=== PATIENT | male | born 1955 | race Caucasian/White ===

== ENCOUNTER 2021-10-06 23:38 | Inpatient (IN) | payer OTHER ==
[~2021-10-06] VITALS: Ht 182.9 cm; Wt 86.4 kg
[2021-10-06] MEDS ORDERED: fentaNYL PF VIAL 100 MCG/2 ML VIAL ONE (23:43)
--- NOTE | 2021-10-07 01:08 | RAD ---
XR SHOULDER 1 VIEW DATE: 10/06/2021 11:50 PM INDICATION: concern for b/l dislocation COMPARISON: None. FINDINGS/ IMPRESSION: Inferior displacement of both humeral heads relative to the glenoid with the arms in fixed abduction, concerning for bilateral inferior shoulder dislocations. No definite fracture line is visualized Electronically signed by: Nikhil Hart MD (10/07/2021 1:06 AM) [facility]
[2021-10-07 01:13] LABS: BASO % 0 % (0-3); EOS # 0.1 x10^3/uL (0.0-0.7); EOS % 1 % (0-3); HEMATOCRIT 43.1 % (39.0-53.0); HEMOGLOBIN 14.3 g/dL (13.0-17.5); LYMPH # 1.5 x10^3/uL (1.0-4.8); LYMPH % 10 % (24-48); MEAN CORPUSCULAR HEMOGLOBIN 31 pg (25-35); MEAN CORPUSCULAR HGB CONC 33 g/dL (31-37); MEAN CORPUSCULAR VOLUME 94 fL (79-100); MONO # 0.9 x10^3/uL (0.0-1.1); MONO % 6 % (0-9); NEUT # 13.3 x10^3/uL (1.8-7.7); NEUT % 84 % (31-73); PLATELET COUNT 251 x10^3/uL (140-400); RED BLOOD COUNT 4.61 x10^6/uL (4.30-5.70); RED CELL DISTRIBUTION WIDTH 13.4 % (11.5-14.5)
[2021-10-07 01:24] LABS: GFR 75.2; POTASSIUM 3.9 mmol/L (3.5-5.1)
[2021-10-07 01:29] LABS: ALBUMIN 3.4 g/dL (3.4-5.0); ALBUMIN/GLOBULIN RATIO 0.7 (1.0-1.7); TOTAL BILIRUBIN 0.2 mg/dL (0.2-1.0)
--- NOTE | 2021-10-07 01:37 | RAD ---
CT HEAD AND C-SPINE WO Date: 10/07/2021 1:22 AM Clinical Indication: head trauma, pain Comparison: None. Technique: 5 mm axial tomographic images were obtained of the head without contrast. These were view ed on brain and bone windows. Noncontrast CT of the cervical spine was performed. Sagittal and park l reformats were performed and evaluated. One or more of the following dose reduction techniques were utilized: Automated exposure control (AEC), Adjustment of mA and/or kV according to patient size, Us e of iterative reconstruction technique such as ASiR, CT scan done according to ALARA and image gentl y/image wisely HEAD FINDINGS: Mild generalized cerebral and cerebellar volume loss. Mild nonspecific periventricular hypoattenuatio n, most commonly seen with chronic small vessel ischemic disease. No intra- or extra-axial mass or fluid collection. No acute hemorrhage. The ventricles are normal in size, shape, and morphology. The lowe-white matter junction is normal. The basilar cisterns are paten t. Mild maxillary sinus mucosal thickening. The visualized portions of the orbits and globes are normal . The mastoid air cells are clear. No aggressive osseous lesion or fracture. CERVICAL SPINE FINDINGS: Straightening of the cervical lordosis. No acute fracture. No aggressive lytic or blastic osseous les ions. Moderate to severe multilevel degenerative disc space height loss. Multilevel moderate spinal canal s tenosis secondary to disc protrusions and marginal osteophytes. Multilevel severe neuroforaminal narr owing secondary to uncovertebral arthrosis. Multilevel mild and moderate facet arthrosis. The thyroid gland is normal. No cervical lymphadenopathy. Bilateral carotid atherosclerosis. The visu alized aerodigestive tract is normal. The visualized portions of the lungs are clear. IMPRESSION: 1. No acute intracranial process. 2. No acute cervical spine fracture. Electronically signed by: Nikhil Hart MD (10/07/2021 1:35 AM) [facility]
--- NOTE | 2021-10-07 01:40 | PHYS DOC ---
General Adult EDM: Chief Complaint: UPPER EXTREMITY PAIN HPI: HPI: Patient is a 65 year old male with history of right shoulder surgery who presents with EMS after trauma sustained at work with [employer]. 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 He had immediate pain in his shoulders there is concern for bilateral shoulder dislocations by EMS. Patient was placed in a field c-collar. Patient received 200 mcg of IV fentanyl prior to arrival. Denies any severe headache or neck pain. States only pain in his shoulders. No blood thinners. Review of Systems: Review of Systems: Constitutional: Denies fever or chills. [] Eyes: Denies change in visual acuity. [] HENT: Denies nasal congestion or sore throat. [] Respiratory: Denies cough or shortness of breath. [] Cardiovascular: Denies chest pain or edema. [] GI: Denies abdominal pain, nausea, vomiting Musculoskeletal: Reports bilateral shoulder pain Integument: Denies rash. Laceration of forehead. [] Neurologic: Denies headache, focal weakness or sensory changes. [] Psychiatric: Denies depression or anxiety. [] Heart Score: C/O Chest Pain: No Current Medications: Current Medications Medications (Trade) Dose Ordered Sig/Shavon Start Time Stop Time Status Last Admin Dose Admin Fentanyl Citrate (Fentanyl 2ml Vial) 100 mcg STK-MED ONCE 10/06/21 23:43 10/06/21 23:43 DC Allergies: Allergies: Allergies Coded Allergies Type Severity Reaction Last Updated Verified No Known Drug Allergies 10/06/21 No Physical Exam: PE: Constitutional: Well developed, well nourished, no acute distress, non-toxic appearance. [] HENT: 1 cm linear laceration to the central forehead. Neck: No significant midline tenderness to palpation. In c-collar. Cardiovascular:Heart rate regular rhythm, no murmur [] Lungs & Thorax: Bilateral breath sounds clear to auscultation. Chest wall non- tender to palpation. [] Abdomen: Bowel sounds normal, soft, no tenderness, no masses, no pulsatile masses. [] Skin: Warm, dry, no erythema, no rash. [] Back: No T or L spine tenderness. Extremities: Glenohumeral defects noted bilaterally concerning for bilateral shoulder dislocations. Limited ROM shoulders. Radial pulses 2+ bilaterally. Patient able to flex and extend fingers and wrist. Neurologic: Alert and oriented X 3, normal motor function, normal sensory function, no focal deficits noted. Following reduction 5/5 uppers edge burnisher strength, thumb extension, thumb opposition, finger abduction, wrist flexion and extension. Intact sensation on the pads of all 5 fingers and in the posterior 1-2nd webspace. [] Psychologic: Affect normal, judgement normal, mood normal. [] Current Patient Data: Labs: Laboratory Tests Test 10/07/21 01:05 White Blood Count 16.0 x10^3/uL (4.0-11.0) H Red Blood Count 4.61 x10^6/uL (4.30-5.70) Hemoglobin 14.3 g/dL (13.0-17.5) Hematocrit 43.1 % (39.0-53.0) Mean Corpuscular Volume 94 fL (79-100) Mean Corpuscular Hemoglobin 31 pg (25-35) Mean Corpuscular Hemoglobin Concent 33 g/dL (31-37) Red Cell Distribution Width 13.4 % (11.5-14.5) Platelet Count 251 x10^3/uL (140-400) Neutrophils (%) (Auto) 84 % (31-73) H Lymphocytes (%) (Auto) 10 % (24-48) L Monocytes (%) (Auto) 6 % (0-9) Eosinophils (%) (Auto) 1 % (0-3) Basophils (%) (Auto) 0 % (0-3) Neutrophils # (Auto) 13.3 x10^3/uL (1.8-7.7) H Lymphocytes # (Auto) 1.5 x10^3/uL (1.0-4.8) Monocytes # (Auto) 0.9 x10^3/uL (0.0-1.1) Eosinophils # (Auto) 0.1 x10^3/uL (0.0-0.7) Basophils # (Auto) 0.0 x10^3/uL (0.0-0.2) Laboratory Tests 10/07/21 01:05 EKG: EKG: [] Radiology/Procedures: Radiology/Procedures: Indication: Bilateral shoulder dislocation Consent: The patient provided consent for this procedure. Procedure: The patient was given a total of 100 mcg of IV fentanyl for analgesia prior to reduction attempts. Prereduction x-rays showed bilateral inferior shoulder dislocations. Multiple techniques were attempted on the right shoulder. Ultimately the FARES technique with scapular manipulation was successful in relocation. The FARES techniques was attempted unsuccessfully in the left shoulder. Ultimately axial traction with scapular manipulation was successful on the left shoulder. Following the procedure the motor and sensory exam through the median, radial, ulnar nerves were intact. Bilateral radial and ulnar pulses were 2+. Axillary nerve function was not assessed due to concern for recurrent dislo cation. Post-reduction films were ordered by engineer technical staff. Complications: none. [][] Indication: 1 cm forehead laceration Procedure: The patient was placed in the appropriate position and anesthesia around the forehead laceration was administered with 1% lidocaine with epinephrine through injection. Approximately 2 cc administered. The area was then irrigated copiously with approximately 200 cc of sterile saline with pre ssure syringe.. The laceration was closed with 5-0 Prolene suture in a simple interrupted fashion. #3 sutures were placed. Total repaired wound length: 1 cm. Other Items: None The patient tolerated the procedure well. Complications: None. Impression: [id number] [place] [address] IMAGING REPORT Signed PATIENT: MILI REVELES ACCOUNT: [id number] : 1955 LOCATION: ER AGE: 65 SEX: M EXAM STATUS: REG ER ORD. PHYSICIAN: OZ ULLOA MD REASON: concern for b/l dislocation PROCEDURE: SHOULDER BILAT 1V XR SHOULDER 1 VIEW DATE: 10/06/2021 11:50 PM INDICATION: concern for b/l dislocation COMPARISON: None. FINDINGS/ IMPRESSION: Inferior displacement of both humeral heads relative to the glenoid with the arms in fixed abduction, concerning for bilateral inferior shoulder dislocations. No definite fracture line is visualized Electronically signed by: Jessica Hart MD (10/07/2021 1:06 AM) [facility] DICTATED and SIGNED BY: JESSICA HART MD DATE: 10/07/21 [id number] [id number] [place] [address] IMAGING REPORT Signed PATIENT: MILI REVELES ACCOUNT: [id number] : 1955 LOCATION: ER AGE: 65 SEX: M EXAM STATUS: REG ER ORD. PHYSICIAN: OZ ULLOA MD REASON: head trauma PROCEDURE: CT HEAD AND CERVICAL SPINE WO CT HEAD AND C-SPINE WO Date: 10/07/2021 1:22 AM Clinical Indication: head trauma, pain Comparison: None. Technique: 5 mm axial tomographic images were obtained of the head without contrast. These were viewed on brain and bone windows. Noncontrast CT of the cervical spine was performed. Sagittal and coronal reformats were performed and evaluated. One or more of the following dose reduction techniques were utilized: Automated exposure control (AEC), Adjustment of mA and/or kV according to patient size, Use of iterative reconstruction technique such as ASiR, CT scan done according to ALARA and image gently/image wisely HEAD FINDINGS: Mild generalized cerebral and cerebellar volume loss. Mild nonspecific p eriventricular hypoattenuation, most commonly seen with chronic small vessel ischemic disease. No intra- or extra-axial mass or fluid collection. No acute hemorrhage. The ventricles are normal in size, shape, and morphology. The olwe-white matter junction is normal. The basilar cisterns are patent. Mild maxillary sinus mucosal thickening. The visualized portions of the orbits and globes are normal. The mastoid air cells are clear. No aggressive osseous lesion or fracture. CERVICAL SPINE FINDINGS: Straightening of the cervical lordosis. No acute fracture. No aggressive lytic or blastic osseous lesions. Moderate to severe multilevel degenerative disc space height loss. Multilevel moderate spinal canal stenosis secondary to disc protrusions and marginal osteophytes. Multilevel severe neuroforaminal narrowing secondary to uncovertebral arthrosis. Multilevel mild and moderate facet arthrosis. The thyroid gland is normal. No cervical lymphadenopathy. Bilateral carotid atherosclerosis. The visualized aerodigestive tract is normal. The visualized portions of the lungs are clear. IMPRESSION: 1. No acute intracranial process. 2. No acute cervical spine fracture. Electronically signed by: Jessica Hart MD (10/07/2021 1:35 AM) [facility] DICTATED and SIGNED BY: JESSICA HART MD DATE: 10/07/21 [id number] Course & Med Decision Making: Course & Med Decision Making Pertinent Labs and Imaging studies reviewed. 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 He is unsure how it happened but states he had immediate bilateral shoulder pain. Exam was concerning for bilateral glenohumeral dislocations which was confirmed with bedside x-ray. After multiple attempts both shoulders were reduced, confirmed with postredu ction x-rays which do raise concern for hillsachs deformity bilaterally. Placed in b/l slings. CT head and neck was obtained and was negative for acute injury. 1 cm forehead laceration was repaired with suture as above. Tdap updated. Patient lives alone and I worry about his safety with two slings will be admitted overnight for PT/OT/Case Management evaluation to determine a safe discharge plan. Dragon Disclaimer: Dragon Disclaimer: This electronic medical record was generated, in whole or in part, using a voice recognition dictation system. Departure Departure Impression: Primary Impression: Dislocation of right shoulder joint Additional Impressions: Dislocation of left shoulder joint Forehead laceration Hill-Sachs fracture of right humerus Hill-Sachs fracture of left humerus Disposition: ADMITTED INPATIENT Admitting Physician: PRAKASH Abarca) Condition: STABLE Referrals: NO PCP (PCP) OZ ULLOA MD Oct 07, 2021 01:40
[2021-10-07] MEDS ORDERED: LIDOCAINE 1%/EPI 1:100,000 20 ML VIAL. INJ ONE (01:45)
[2021-10-07] MEDS ORDERED: fentaNYL PF VIAL 100 MCG/2 ML VIAL IVP ONE (01:45)
--- NOTE | 2021-10-07 01:49 | RAD ---
XR SHOULDER 1 VIEW DATE: 10/06/2021 1:20 AM INDICATION: POST REDUCTION COMPARISON: None. FINDINGS/ IMPRESSION: Internal rotation. Interval bilateral shoulder reduction with both humeral heads now overlying the glenoid, suspected to be congruent allowing for lack of orthogonal view. Mild concavity along the medial aspect of both hu meral heads, which could represent impaction injuries. Electronically signed by: Nikhil Hart MD (10/07/2021 1:46 AM) [facility]
[2021-10-07] MEDS ORDERED: MORPHINE SULFATE 2 MG/ML INJ. IVP PRN (02:15)
[2021-10-07] MEDS ORDERED: IBUPROFEN 400 MG TABLET. PO PRN (02:15)
[2021-10-07] MEDS ORDERED: ACETAMINOPHEN 500 MG TABLET PO PRN (02:30)
[2021-10-07 03:00] VITALS: BP 135/85
[2021-10-07 07:30] VITALS: BP 132/83
--- NOTE | 2021-10-07 10:47 | SSS ---
DATE OF SERVICE: 10/07/2021 ADMIT DATE: 10/07/2021 SHORT STAY SUMMARY CHIEF COMPLAINT: Bilateral shoulder pain. HISTORY OF PRESENT ILLNESS: The patient is a pleasant 65-year-old male who was working at [employer] and some pellets were fallen on him. He pushed back on the pellets. It dislocated both of his shoulders. The shoulders were relocated last night. He has now been admitted for observation. This morning, he wants to go home. We plan to discharge. DISPOSITION: Home. ACTIVITY: As tolerated. DIET: Low sodium. MEDICATIONS: Please see MRAD. PAST MEDICAL HISTORY: Arthritis. ALLERGIES: None. FAMILY HISTORY: Diabetes. SOCIAL HISTORY: Does not drink, smoke or take drugs. Works at [employer]. MEDICATIONS: Reviewed. Please refer to the MRAD. REVIEW OF SYSTEMS: GENERAL: No history of weight change, weakness or fevers. SKIN: No bruising, hair changes or rashes. EYES: No blurred, double or loss of vision. NOSE AND THROAT: No history of nosebleeds, hoarseness or sore throat. HEART: No history of palpitations, chest pain or shortness of breath on exertion. LUNGS: Denies cough, hemoptysis, wheezing or shortness of breath. GASTROINTESTINAL: Denies changes in appetite, nausea, vomiting, diarrhea or constipation. GENITOURINARY: No history of frequency, urgency, hesitancy or nocturia. NEUROLOGIC: Denies history of numbness, tingling, tremor or weakness. PSYCHIATRIC: No history of panic, anxiety or depression. ENDOCRINE: No history of heat or cold intolerance, polyuria or polydipsia. EXTREMITIES: Denies muscle weakness, joint pain, pain on walking or stiffness. PHYSICAL EXAMINATION: VITALS: Within normal limits and are stable. GENERAL: No apparent distress. Alert and oriented. HEENT: Normal cephalic atraumatic, external auditory canals are patent. EYES: Extraocular muscles are intact, pupils are equally round and reactive to light and accommodation. MUSCULOSKELETAL: Well developed, well nourished, good range of motion. ENDOCRINE: No thyromegaly was palpated. LYMPHATICS: No cervical chain or axillary nodes were noted. HEMATOPOIETIC: No bruising. NECK: Supple, no JVD, no thyromegaly was noted. LUNGS: Clear to auscultation in all lung christie without rhonchi or wheezing. HEART: RRR, S1, S2 present. Peripheral pulses intact, no obvious murmurs were noted. ABDOMEN: Soft, nontender. Positive bowel sounds no organomegaly, normal bowel sounds. EXTREMITIES: Without any cyanosis, clubbing, or edema. Pedal pulses intact, Homans sign is negative. NEUROLOGIC: Normal speech, normal tone. A and O x 3, moves all extremities, no obvious focal deficits. PSYCHIATRIC: Normal affect, normal mood. Stable. SKIN: No ulcerations or rashes, good skin turgor, no jaundice. VASCULAR: Good capillary refill, neurovascular bundle appears to be intact. SEBASTIAN/YOUNG DR: Christian TID: [id number]
[2021-10-07 11:07] VITALS: BP 165/113
--- NOTE | 2021-10-07 14:55 | NUR ---
SS following for discharge planning. SS reviewed pt chart and discussed with pt RN. Pt is from home and is currently on room air. Discharge order on the chart for home with self care. Pt requesting home healthcare services in the home. Physician notified. Referral phoned and faxed to [facility], ; fax [phone]. SS will continue to follow for discharge planning. Addendum: 10/07/21 at 1517 by DAYANARA BARNETT SS Discharge orders received for home with home healthcare and sent to [facility].
--- NOTE | 2021-10-07 15:06 | SNU/HH DC ---
DISCHARGE WITH HOME HEALTH DISCHARGE INFORMATION: Discharge Date: Oct 07, 2021 Final Diagnosis: Problems Medical Problems: (1) Dislocation of left shoulder joint Status: Acute (2) Dislocation of right shoulder joint Status: Acute (3) Forehead laceration Status: Acute (4) Hill-Sachs fracture of left humerus Status: Acute (5) Hill-Sachs fracture of right humerus Status: Acute Condition on Discharge: Stable CODE STATUS: Code Status: Full HOME HEALTH: Face to Face: I certify this patient is under my care and that I, or a nurse practitioner or physician's curriculum assistant principal working with me, had a face to face encounter that meets the physician face to face encounter requirements with this patient on 10/07/2021. Medical Complications: Falls, FX Senior Care For: Assess & Educate Safety, Assess/Skilled Observatio, Medication Management, Pain Management RN For Eval/Treatment: Yes Physical Therapy For: Evalulation/Treatment Occupational Therapy For: Evaluation/Treatment Pt Meets Homebound Status: Unsteady balance w/ amb, POST DISCHARGE ORDERS: Activity Instructions for Disc: Activity as tolerated DIET AFTER DISCHARGE: Regular Wound/Incision Care: Ice to area for comfort FOLLOW-UP: Follow Up With: PRIMARY CARE PROVIDER IN 1 WEEK CERTIFICATION STATEMENT: Certification Statement: Certification Statement: Based on the above finding, I certify that this patient is confined to the home and needs intermittent mcc care, physical therapy and/or speech therapy, or continues to need occupational therapy.~ This patient is under my care, and I have initiated the establishment of the plan of care.~ This patient will be followed by myself or a community physician who will periodically review the plan of care. Home Meds Reported Medications Info (NO KNOWN MEDICATIONS PRIOR TO ADMISSTION) Each, 1 EACH 1X for none, EACH 10/07/21 ARLETH GALVAN MD Oct 07, 2021 15:06
[2021-10-07 15:15] VITALS: BP 171/87
[2021-10-07] MEDS ORDERED: IBUP-1060 PO (15:33)
--- NOTE | 2021-10-07 15:51 | NUR ---
PT DISCHARGED HOME WITH HOME HEALTH. DISCHARGE INSTRUCTIONS AND PRESCRIPTIONS DISCUSSED. PT VERBALIZED UNDERSTANDING. IV'S REMOVED. PT ASSISTED TO WHEELCHAIR AND WAS SECURED IN CAR WITH SON BY REJI.
== END 2021-10-07 15:53 | disposition home health service (06) | DRG 563 ==
LOC: ER 23:38 → 4 NORTH 10-07 02:15
PROVIDERS: ADMIT Internal Medicine; ATTEND Internal Medicine
PROC: 0RSJXZZ Reposition Right Shoulder Joint, External Approach (ICD-10-PCS; principal; 2021-10-07)
PROC: 0RSKXZZ Reposition Left Shoulder Joint, External Approach (ICD-10-PCS; 2021-10-07)
DX: S43.004A Unspecified dislocation of right shoulder joint, initial encounter (principal); S42.291A Other displaced fracture of upper end of right humerus, initial encounter for closed fracture; S42.292A Other displaced fracture of upper end of left humerus, initial encounter for closed fracture; S01.81XA Laceration without foreign body of other part of head, initial encounter; S43.005A Unspecified dislocation of left shoulder joint, initial encounter; X58.XXXA Exposure to other specified factors, initial encounter; Z83.3 Family history of diabetes mellitus; M19.90 Unspecified osteoarthritis, unspecified site; Z60.2 Problems related to living alone; Y93.89 Activity, other specified; Y92.89 Other specified places as the place of occurrence of the external cause; Y99.8 Other external cause status
CPT/HCPCS: 12011; 23650; 36415; 70450; 72125; 80053; 85025; A4565; G0379; J3010; J3490; 73020-50; 99285-25

== ENCOUNTER 2021-10-15 14:55 | Emergency (ER) | payer OTHER ==
[~2021-10-15] VITALS: Ht 185.4 cm; Wt 86.4 kg
[~2021-10-15 14:55] MED LIST: IBUP-1060 PO
[2021-10-15 15:42] VITALS: BP 146/95
--- NOTE | 2021-10-15 15:50 | PHYS DOC ---
Past Medical History Past Surgical History: Other Additional Past Surgical Histo: RIGHT SHOULDER SURGERY Smoking Status: Former Smoker Alcohol Use: None General Adult EDM: Chief Complaint: SUTURE/STAPLE REMOVAL HPI: HPI: Patient is a 65-year-old male presents to the emergency department for suture removal of 3 sutures to his forehead. Patient had been placed on 07 October 2021 after suffering a laceration from a falling wooden palate. Patient states his last tetanus immunization was greater than 5 years ago. Patient denies any problems with his sutures, denies pain to his forehead or suture site, denies drainage from the suture site. Patient denies other physical complaints or physical concerns. Review of Systems: Review of Systems: 14 body systems of review of systems have been reviewed. See HPI for pertinent positives and negative responses, otherwise all other systems are negative, nonpertinent or noncontributory. Constitutional: Negative except as outlined in HPI above. Skin: Negative except as outlined in HPI above. Eyes: Negative except as outlined in HPI above. HENT: Negative except as outlined in HPI above. Respiratory: Negative except as outlined in HPI above. Cardiovascular: Negative except as outlined in HPI above. GI: Negative except as outlined in HPI above. : Negative except as outlined in HPI above. Musculoskeletal: Negative except as outlined in HPI above. Integument: Negative except as outlined in HPI above. Neurologic: Negative except as outlined in HPI above. Endocrine: Negative except as outlined in HPI above. Lymphatic: Negative except as outlined in HPI above. Psychiatric: Negative except as outlined in HPI above. Heart Score: C/O Chest Pain: No Risk Factors: Risk Factors: DM, Current or recent (<one month) smoker, HTN, HLP, family history of CAD, obesity. Risk Scores: Score 0 - 3: 2.5% MACE over next 6 weeks - Discharge Home Score 4 - 6: 20.3% MACE over next 6 weeks - Admit for Clinical Observation Score 7 - 10: 72.7% MACE over next 6 weeks - Early Invasive Strategies Allergies: Allergies: Allergies Coded Allergies Type Severity Reaction Last Updated Verified No Known Drug Allergies 10/06/21 No Physical Exam: PE: Constitutional: Well developed, well nourished, no acute distress, non-toxic ap pearance. 65-year-old male in no apparent distress. HENT: Normocephalic, atraumatic. Central forehead has 3 intact sutures, edges well approximated, no drainage from suture site, mild erythema at approximated edges, no sign of infectious process appreciated, there is no swelling or induration. Bilateral TMs intact and within normal limits. Eyes: Conjunctiva normal, no discharge. Neck: Normal range of motion, no stridor. Cardiovascular: No cyanosis appreciated, distal cap refill less than 2 seconds. Lungs & Thorax: Patient is in no respiratory distress, no audible adventitious lung sounds appreciated. Abdomen: Nontender, no abnormalities noted. Skin: Warm, dry, no erythema, no rash. See HEENT note for focused skin examination. Back: No tenderness, no deformities. Extremities: No tenderness, no cyanosis, no clubbing, ROM intact, no edema. Neurologic: Alert and oriented X 3, normal motor function, normal sensory function, no focal deficits noted. Psychologic: Affect normal, judgement normal, mood normal. EKG: EKG: [] Radiology/Procedures: Radiology/Procedures: [] Course & Med Decision Making: Course & Med Decision Making Pertinent Labs and Imaging studies reviewed. (See chart for details) 65-year-old male, vital signs reviewed, presents to the emergency department requesting suture removal from sutures placed on forehead on 07 October 2021. Physical examination reveals 3 intact sutures to the forehead, these were removed without difficulty or incident. Bacitracin ointment and dressing applied, the patient reported his last tetanus immunization was greater than 5 years ago, did not recall receiving a tetanus immunization during his visit on the . Upon chart review of patient's visit here at [facility] emergency department on 10/07/2021, ED provider noted that tetanus immunization was up-to-date however no order was seen upon medication review, I called pharmacy who confirmed patient did not have Tdap ordered. Will order Tdap for today's visit prior to discharge from emergency department. Discussed ongoing wound care from suture removal with patient, follow-up with primary care or work comp physician for reevaluation of suture site, signs and symptoms of infective process, return to ER precautions and concerns were reviewed, discussed with patient updating Tdap medication today, updating immunization records accordingly. Patient gave verbal understanding of and is amenable to ED discharge planning. Genet Disclaimer: Genet Disclaimer: This electronic medical record was generated, in whole or in part, using a voice recognition dictation system. Departure Departure Impression: Primary Impression: Encounter for removal of sutures Additional Impression: Need for Tdap vaccination Disposition: HOME / SELF CARE / HOMELESS Condition: GOOD Referrals: NO PCP (PCP) Patient Instructions: Suture Removal, Sutured Wound Care, VIS, Tetanus, Diphtheria (Td); Tetanus, Diphtheria, Pertussis (Tdap) - CDC Additional Instructions: You were seen today in the emergency department to have sutures removed from your forehead. These were removed, there is no sign of infectious process, continue to cleanse daily with soap and water and apply antibiotic ointment, watch for signs and symptoms of infection, please follow-up with your primary care doctor or Workmen's Comp. physician for ongoing symptoms or other concerns, your tetanus immunization was brought up to date today in the emergency department with a medication called Tdap, please update your immunization records accordingly. Thank you for visiting our Emergency Department. It was a pleasure taking care of you today in the emergency department and we appreciate you trusting us with your care. If any additional problems come up don't hesitate to return to visit us. Please follow up with your primary care provider so they can plan additional care if needed and know about the problem that you had. If symptoms worsen come back to the Emergency Department. Any concerning symptoms that start such as chest pain, shortness of air, weakness or numbness on one side of the body, running high fevers or any other concerning symptoms return to the ER. ELIZABETH KOTHARI APRN Oct 15, 2021 15:50
[2021-10-15] MEDS ORDERED: DIPHTH,PERTUSS(ACELL),TET TOX 0.5 ML DISP.SYRIN. VAX IM ONE (16:00)
[2021-10-15] MEDS ORDERED: BACITRACIN TOPICAL OINT PACKET. TP ONE (16:00)
== END 2021-10-15 16:20 | disposition home or self-care (01) ==
LOC: ER 14:55
DX: S01.81XD Laceration without foreign body of other part of head, subsequent encounter (principal); Z87.891 Personal history of nicotine dependence; X58.XXXD Exposure to other specified factors, subsequent encounter
CPT/HCPCS: 90471; 90715; 99283-25